=== PATIENT | female | born 1990 | race Caucasian/White ===

== ENCOUNTER 2019-08-27 13:06 | Emergency (ER) | payer OTHER ==
[~2019-08-27] VITALS: Ht 160 cm; Wt 100.0 kg
[2019-08-27 13:16] VITALS: Ht 160 cm; Wt 100.0 kg
[2019-08-27 18:49] VITALS: BP 121/86
== END 2019-08-27 18:49 | disposition home or self-care (01) ==
LOC: ED 13:06
DX: M54.42 Lumbago with sciatica, left side (principal); N39.0 Urinary tract infection, site not specified
CPT/HCPCS: J1885